=== PATIENT | female | born 1940 | race Caucasian/White ===

== ENCOUNTER 2017-12-20 09:41 | Inpatient (IN) | payer OTHER, MEDICAID ==
[~2017-12-20] VITALS: Ht 149.9 cm; Wt 65.8 kg
[2017-12-20 09:48] VITALS: BP_SYST 152
[2017-12-20] MEDS ORDERED: NACL 0.9% 1,000 ML IV ONE (09:54)
[2017-12-20 10:20] LABS: EOSINOPHILS # (AUTO) 0.1 K/uL (0.0-0.4); EOSINOPHILS % (AUTO) 1.6 % (0.0-4.0); HEMATOCRIT 36.9 % (36-48); HEMOGLOBIN 12.6 g/dL (12.0-16.0); LYMPHOCYTES # (AUTO) 0.5 K/uL (1.0-5.5); LYMPHOCYTES % (AUTO) 10.7 % (20.5-51.5); MEAN CORPUSCULAR HEMOGLOBIN 36 pg (27-31); MEAN CORPUSCULAR HGB CONC 34 % (32-36); MEAN CORPUSCULAR VOLUME 105 fL (79.0-98.0); MONOCYTES # (AUTO) 0.4 K/uL (0.0-1.0); MONOCYTES % (AUTO) 7.5 % (1.7-9.3); NEUTROPHILS # (AUTO) 3.8 K/uL (1.8-7.7); NEUTROPHILS % (AUTO) 79.2 % (40.0-70.0); PLATELET COUNT (AUTO) 125 K/uL (130-430); RED BLOOD CELL COUNT(AUTO) 3.51 MIL/uL (4.2-6.2); WHITE BLOOD COUNT (AUTO) 4.8 K/uL (4.8-10.8)
[2017-12-20 10:22] LABS: BILIRUBIN,URINE NEGATIVE (NEGATIVE); BLOOD, URINE 1+ (NEGATIVE); CLARITY/URINE HAZY (CLEAR); COLOR,URINE YELLOW (YELLOW); GLUCOSE,URINE NEGATIVE (NEGATIVE); KETONES,URINE NEGATIVE (NEGATIVE); LEUKOCYTE ESTERASE ,URINE NEGATIVE (NEGATIVE); NITRITE, URINE NEGATIVE (NEGATIVE); PH,URINE 6.5 (5.0-8.0); PROTEIN URINE NEGATIVE (NEGATIVE); UROBILINOGEN,URINE 0.2 (0.2-1.0)
[2017-12-20] MEDS ORDERED: FURO-149 PO (10:32)
[2017-12-20] MEDS ORDERED: SPIR50TA PO (10:32)
[2017-12-20] MEDS ORDERED: LOM2.5 PO (10:32)
[2017-12-20] MEDS ORDERED: LACT10SO7 PO (10:32)
[2017-12-20] MEDS ORDERED: CLOB50FO8 TP (10:32)
[2017-12-20] MEDS ORDERED: LORA-258 PO (10:32)
[2017-12-20] MEDS ORDERED: ONDA4TAB5 PO (10:32)
[2017-12-20] MEDS ORDERED: ESCI10TA PO (10:32)
[2017-12-20 11:08] LABS: ANION GAP 8 (5-15); CHLORIDE 109 mmol/L (98-107); CREATININE 1.35 mg/dL (0.55-1.30); GLUCOSE 94 mg/dL (70-99); SODIUM SERUM 141 mmol/L (136-145); UREA NITROGEN, BLOOD 25 mg/dL (8-21)
[2017-12-20 11:12] LABS: BACTERIA,URINE FEW /HPF (None Seen); MUCUS,URINE 1+ /LPF (None Seen); RBC,URINE 0-3 /HPF (0-3)
[2017-12-20 11:13] LABS: ALANINE AMINOTRANSFERASE 18 U/L (12-78); ALBUMIN 3.1 g/dL (3.4-4.8); ASPARTATE AMINOTRANSFERASE 24 U/L (10-37); TOTAL BILIRUBIN 2.2 mg/dL (0.0-1.0)
[2017-12-20] MEDS ORDERED: cefTRIAXone 1 GM in D5W 50 ML IV ONE (12:30)
[2017-12-20] MEDS ORDERED: cefTRIAXone 1 GM VIAL ONE (12:51)
[2017-12-20 13:31] VITALS: BP_SYST 146
[2017-12-20] MEDS ORDERED: AZITHROMYCIN 250 MG TABLET PO ONE (14:15)
[2017-12-20 15:33] VITALS: BP_SYST 145
[2017-12-20] MEDS ORDERED: ALBUTEROL SULFATE 0.083% 2.5 MG/3 ML VIAL.NEB INH PRN (19:45)
[2017-12-20] MEDS ORDERED: IPRATROPIUM BROM 0.5 MG/2.5 ML VIAL.NEB (ATROVENT) INH PRN (19:45)
[2017-12-20 21:05] VITALS: BP_SYST 111
[2017-12-21] MEDS: IPRATROPIUM BROM 0.5 MG/2.5 ML VIAL.NEB (ATROVENT) INH SCH ×3 (01:23→19:17)
[2017-12-21] MEDS: ALBUTEROL SULFATE 0.083% 2.5 MG/3 ML VIAL.NEB INH SCH ×3 (01:23→19:17)
[2017-12-21 01:57] VITALS: BP_SYST 125
[2017-12-21 06:10] LABS: BASOPHILS # (AUTO) 0.1 K/uL (0.0-0.2); BASOPHILS % (AUTO) 1.1 % (0.0-2.0); EOSINOPHILS # (AUTO) 0.2 K/uL (0.0-0.4); EOSINOPHILS % (AUTO) 3.2 % (0.0-4.0); HEMATOCRIT 28.9 % (36-48); HEMOGLOBIN 9.5 g/dL (12.0-16.0); LYMPHOCYTES # (AUTO) 0.9 K/uL (1.0-5.5); LYMPHOCYTES % (AUTO) 18.9 % (20.5-51.5); MEAN CORPUSCULAR HEMOGLOBIN 35 pg (27-31); MEAN CORPUSCULAR HGB CONC 33 % (32-36); MEAN CORPUSCULAR VOLUME 105 fL (79.0-98.0); MONOCYTES # (AUTO) 0.6 K/uL (0.0-1.0); MONOCYTES % (AUTO) 11.7 % (1.7-9.3); NEUTROPHILS % (AUTO) 65.1 % (40.0-70.0); PLATELET COUNT (AUTO) 106 K/uL (130-430); RED BLOOD CELL COUNT(AUTO) 2.75 MIL/uL (4.2-6.2); RED CELL DISTRIBUTION WIDTH 15.3 % (9.0-15.0); WHITE BLOOD COUNT (AUTO) 4.8 K/uL (4.8-10.8)
[2017-12-21 06:27] LABS: ANION GAP 8 (5-15); CHLORIDE 110 mmol/L (98-107); CREATININE 1.34 mg/dL (0.55-1.30); GLUCOSE 79 mg/dL (70-99); POTASSIUM 3.8 mmol/L (3.5-5.1); SODIUM SERUM 143 mmol/L (136-145); UREA NITROGEN, BLOOD 29 mg/dL (8-21)
[2017-12-21 06:36] LABS: ALANINE AMINOTRANSFERASE 13 U/L (12-78); ALBUMIN 2.4 g/dL (3.4-4.8); ASPARTATE AMINOTRANSFERASE 21 U/L (10-37); TOTAL BILIRUBIN 1.4 mg/dL (0.0-1.0)
[2017-12-21 07:45] VITALS: BP_SYST 162
[2017-12-21] MEDS: FUROSEMIDE 40 MG TABLET PO SCH (08:40)
[2017-12-21] MEDS ORDERED: cefTRIAXone 1 GM in D5W 50 ML IV SCH (09:00)
[2017-12-21] MEDS ORDERED: AZITHROMYCIN 250 MG TABLET PO SCH (09:00)
[2017-12-21] MEDS ORDERED: ACETAMINOPHEN 325 MG TABLET PO PRN (11:00)
[2017-12-21] MEDS ORDERED: ONDANSETRON HCL 4 MG/2 ML VIAL IVP PRN (11:00)
[2017-12-21 11:36] VITALS: BP_SYST 131
[2017-12-21 15:26] VITALS: BP_SYST 135
[2017-12-21] MEDS: LACTULOSE 20 GM/30 ML UDC PO SCH (20:40)
[2017-12-21] MEDS: FAMOTIDINE 20 MG TABLET PO SCH (20:40)
[2017-12-21 20:45] VITALS: BP_SYST 115
[2017-12-21 23:30] VITALS: BP_SYST 141
[2017-12-22] MEDS: ALBUTEROL SULFATE 0.083% 2.5 MG/3 ML VIAL.NEB INH SCH ×3 (00:35→13:56)
[2017-12-22] MEDS: IPRATROPIUM BROM 0.5 MG/2.5 ML VIAL.NEB (ATROVENT) INH SCH ×3 (00:35→13:56)
[2017-12-22 06:53] LABS: BASOPHILS % (AUTO) 0.9 % (0.0-2.0); EOSINOPHILS # (AUTO) 0.1 K/uL (0.0-0.4); EOSINOPHILS % (AUTO) 3.6 % (0.0-4.0); HEMATOCRIT 28.7 % (36-48); HEMOGLOBIN 10.1 g/dL (12.0-16.0); LYMPHOCYTES # (AUTO) 0.5 K/uL (1.0-5.5); LYMPHOCYTES % (AUTO) 13.4 % (20.5-51.5); MEAN CORPUSCULAR HEMOGLOBIN 36 pg (27-31); MEAN CORPUSCULAR HGB CONC 35 % (32-36); MEAN CORPUSCULAR VOLUME 102 fL (79.0-98.0); MONOCYTES # (AUTO) 0.5 K/uL (0.0-1.0); NEUTROPHILS # (AUTO) 2.7 K/uL (1.8-7.7); NEUTROPHILS % (AUTO) 70.1 % (40.0-70.0); PLATELET COUNT (AUTO) 96 K/uL (130-430); RED BLOOD CELL COUNT(AUTO) 2.81 MIL/uL (4.2-6.2); RED CELL DISTRIBUTION WIDTH 14.9 % (9.0-15.0); WHITE BLOOD COUNT (AUTO) 3.8 K/uL (4.8-10.8)
[2017-12-22 06:55] LABS: ALANINE AMINOTRANSFERASE 13 U/L (12-78); ALBUMIN 2.4 g/dL (3.4-4.8); ANION GAP 3 (5-15); ASPARTATE AMINOTRANSFERASE 19 U/L (10-37); CALCIUM 9.4 mg/dL (8.4-11.0); CHLORIDE 110 mmol/L (98-107); CREATININE 1.17 mg/dL (0.55-1.30); GLUCOSE 85 mg/dL (70-99); POTASSIUM 4.1 mmol/L (3.5-5.1); SODIUM SERUM 139 mmol/L (136-145); TOTAL BILIRUBIN 1.1 mg/dL (0.0-1.0); UREA NITROGEN, BLOOD 28 mg/dL (8-21)
[2017-12-22 08:35] VITALS: BP_SYST 146
[2017-12-22] MEDS ORDERED: AZITHROMYCIN 250 MG TABLET PO SCH (09:00)
[2017-12-22] MEDS ORDERED: SPIRONOLACTONE 25 MG TABLET (ALDACTONE) PO SCH (09:00)
[2017-12-22] MEDS: FUROSEMIDE 40 MG TABLET PO SCH (09:33)
[2017-12-22] MEDS: LACTULOSE 20 GM/30 ML UDC PO SCH (09:34)
[2017-12-22] MEDS: FAMOTIDINE 20 MG TABLET PO SCH (09:34)
[2017-12-22] MEDS ORDERED: FURO-150 PO (10:18)
[2017-12-22] MEDS ORDERED: AZIT500T2 PO (10:19)
[2017-12-22] MEDS ORDERED: ALBMDI INH (10:20)
[2017-12-22 12:40] VITALS: BP_SYST 137
[2017-12-22 12:53] VITALS: BP_SYST 137
[2017-12-22 16:33] VITALS: BP_SYST 146
== END 2017-12-22 17:00 | disposition home or self-care (01) | DRG 193 ==
LOC: SED 09:41 → SMU 13:03
PROVIDERS: ADMIT Internal Medicine Hospice and Palliative Medicine; ATTEND Internal Medicine Hospice and Palliative Medicine
DX: J18.9 Pneumonia, unspecified organism (principal); E43 Unspecified severe protein-calorie malnutrition; I13.0 Hypertensive heart and chronic kidney disease with heart failure and stage 1 through stage 4 chronic kidney disease, or unspecified chronic kidney disease; F03.90 Unspecified dementia, unspecified severity, without behavioral disturbance, psychotic disturbance, mood disturbance, and anxiety; I50.9 Heart failure, unspecified; K74.60 Unspecified cirrhosis of liver; N18.9 Chronic kidney disease, unspecified; Z90.49 Acquired absence of other specified parts of digestive tract; Z79.899 Other long term (current) drug therapy
CPT/HCPCS: 36415; 71045; 71250-TC; 80053; 81000-TC; 82140-TC; 83605; 83880; 84484; 85025; 87040-TC; 94640; 96361; 96365; 99285; J0696; J7030; J7060; J7613; Q0144

== ENCOUNTER 2018-07-05 06:39 | Inpatient (IN) | payer OTHER, MEDICAID ==
[2018-07-05] VITALS (7 sets, daily range): BP systolic 118–157
[~2018-07-05] VITALS: Ht 149.9 cm; Wt 68.6 kg
[~2018-07-05 06:39] MED LIST: ALBMDI INH; AZIT500T2 PO; CLOB50FO8 TP; ESCI10TA PO; FURO-150 PO; LACT10SO7 PO; LOM2.5 PO; LORA-258 PO; ONDA4TAB5 PO
[2018-07-05] MEDS ORDERED: NACL 0.9% 1,000 ML IV ONE (07:00)
[2018-07-05] MEDS ORDERED: IPRATROPIUM/ALBUTEROL SULFATE 3 ML AMPUL.NEB (DUONEB) INH ONE ×2 (07:30→10:00)
[2018-07-05] MEDS ORDERED: FUROSEMIDE 40 MG/4 ML VIAL IVP ONE (08:15)
[2018-07-05 08:58] LABS: ANION GAP 9 (5-15); CHLORIDE 108 mmol/L (98-107); GLUCOSE 90 mg/dL (70-99); POTASSIUM 3.1 mmol/L (3.5-5.1); SODIUM SERUM 144 mmol/L (136-145)
[2018-07-05 08:59] LABS: CALCIUM 9.2 mg/dL (8.4-11.0); CREATININE 1.01 mg/dL (0.55-1.30); UREA NITROGEN, BLOOD 24 mg/dL (8-21)
[2018-07-05 09:00] LABS: HEMATOCRIT 30.7 % (36-48); HEMOGLOBIN 10.8 g/dL (12.0-16.0); INR 1.3 (0.8-1.2); PROTHROMBIN TIME 13.1 SECS (9.5-12.5); RED BLOOD CELL COUNT(AUTO) 3.05 MIL/uL (4.2-6.2); WHITE BLOOD COUNT (AUTO) 5.5 K/uL (4.8-10.8)
[2018-07-05 09:01] LABS: BASOPHILS # (AUTO) 0.1 K/uL (0.0-0.2); BASOPHILS % (AUTO) 1.3 % (0.0-2.0); EOSINOPHILS # (AUTO) 0.2 K/uL (0.0-0.4); EOSINOPHILS % (AUTO) 3.1 % (0.0-4.0); LYMPHOCYTES # (AUTO) 0.5 K/uL (1.0-5.5); LYMPHOCYTES % (AUTO) 9.1 % (20.5-51.5); MEAN CORPUSCULAR HEMOGLOBIN 35 pg (27-31); MEAN CORPUSCULAR HGB CONC 35 % (32-36); MEAN CORPUSCULAR VOLUME 101 fL (79.0-98.0); MONOCYTES # (AUTO) 0.7 K/uL (0.0-1.0); NEUTROPHILS # (AUTO) 4.1 K/uL (1.8-7.7); NEUTROPHILS % (AUTO) 74.5 % (40.0-70.0); PLATELET COUNT (AUTO) 150 K/uL (130-430); RED CELL DISTRIBUTION WIDTH 16.3 % (9.0-15.0)
[2018-07-05 09:07] LABS: ALANINE AMINOTRANSFERASE 14 U/L (12-78); ALBUMIN 2.4 g/dL (3.4-4.8); ASPARTATE AMINOTRANSFERASE 31 U/L (10-37)
[2018-07-05] MEDS ORDERED: POTASSIUM CHLORIDE 20 MEQ TAB.PRT.SR PO ONE ×2 (09:30→11:00)
[2018-07-05] MEDS ORDERED: ASPIRIN 81 MG TAB.CHEW PO ONE (09:30)
[2018-07-05] MEDS ORDERED: ACETAMINOPHEN 325 MG TABLET PO PRN (09:45)
[2018-07-05] MEDS ORDERED: ONDANSETRON HCL 4 MG/2 ML VIAL IVP PRN (10:00)
[2018-07-05 10:05] LABS: BILIRUBIN,URINE NEGATIVE (NEGATIVE); BLOOD, URINE 2+ (NEGATIVE); CLARITY/URINE CLEAR (CLEAR); COLOR,URINE YELLOW (YELLOW); GLUCOSE,URINE NEGATIVE (NEGATIVE); KETONES,URINE NEGATIVE (NEGATIVE); LEUKOCYTE ESTERASE ,URINE NEGATIVE (NEGATIVE); NITRITE, URINE NEGATIVE (NEGATIVE); PROTEIN URINE 2+ (NEGATIVE); UROBILINOGEN,URINE 0.2 (0.2-1.0)
[2018-07-05] MEDS ORDERED: FUROSEMIDE 20 MG/2 ML VIAL IVP ONE (11:00)
[2018-07-05 11:09] LABS: BACTERIA,URINE RARE /HPF (None Seen); WBC,URINE 0-3 /HPF (0-3)
[2018-07-05 11:12] LABS: URINE AMORPHOUS URATE 1+ /HPF (None Seen)
[2018-07-05] MEDS ORDERED: AZITHROMYCIN 500 MG in NS 250 ML IV SCH (11:30)
[2018-07-05] MEDS: cefTRIAXone 1 GM in D5W 50 ML IV SCH (11:56)
[2018-07-05] MEDS: NORMAL SALINE 5 ML DISP.SYRIN IVF SCH ×2 (17:35→22:14)
[2018-07-05] MEDS ORDERED: DIPHENOXYLATE HCL/ATROP SULF 2.5 MG TAB PO PRN (19:15)
[2018-07-05] MEDS ORDERED: FUROSEMIDE 20 MG/2 ML VIAL IVP SCH (21:00)
[2018-07-05] MEDS ORDERED: POTASSIUM CHLORIDE 20 MEQ TAB.PRT.SR ONE (22:15)
[2018-07-06] VITALS (7 sets, daily range): BP systolic 127–164
[2018-07-06] MEDS: ENALAPRILAT DIHYDRATE 1.25 MG/ML VIAL IVP PRN (04:45)
[2018-07-06] MEDS: NORMAL SALINE 5 ML DISP.SYRIN IVF SCH ×3 (06:42→21:05)
[2018-07-06] MEDS: cefTRIAXone 1 GM in D5W 50 ML IV SCH (09:17)
[2018-07-06] MEDS: ASPIRIN 81 MG TAB.CHEW PO SCH (09:18)
[2018-07-06] MEDS: CITALOPRAM HYDROBROMIDE 20 MG TABLET PO SCH (09:18)
[2018-07-06] MEDS: POTASSIUM CHLORIDE 10 MEQ TAB.PRT.SR PO SCH (09:18)
[2018-07-06] MEDS: FUROSEMIDE 40 MG/4 ML VIAL IVP SCH (09:19)
[2018-07-06] MEDS: AZITHROMYCIN 250 MG in NS 250 ML IV SCH (09:55)
[2018-07-06] MEDS ORDERED: ENOXAPARIN SODIUM 30 MG/0.3 ML SYRINGE SUBCUT ONE (13:00)
[2018-07-06] MEDS: LACTULOSE 20 GM/30 ML UDC PO SCH (21:05)
[2018-07-07] MEDS: NORMAL SALINE 5 ML DISP.SYRIN IVF SCH ×3 (05:40→21:57)
[2018-07-07 07:24] LABS: ANION GAP 7 (5-15); CALCIUM 8.8 mg/dL (8.4-11.0); CHLORIDE 109 mmol/L (98-107); CREATININE 1.06 mg/dL (0.55-1.30); GLUCOSE 80 mg/dL (70-99); POTASSIUM 3.6 mmol/L (3.5-5.1); SODIUM SERUM 144 mmol/L (136-145); UREA NITROGEN, BLOOD 25 mg/dL (8-21)
[2018-07-07 07:34] LABS: ALANINE AMINOTRANSFERASE 13 U/L (12-78); ALBUMIN 2.2 g/dL (3.4-4.8); ASPARTATE AMINOTRANSFERASE 24 U/L (10-37); TOTAL BILIRUBIN 1.5 mg/dL (0.0-1.0)
[2018-07-07 08:04] VITALS: BP_SYST 147
[2018-07-07 08:07] LABS: BASOPHILS # (AUTO) 0.1 K/uL (0.0-0.2); BASOPHILS % (AUTO) 1.1 % (0.0-2.0); EOSINOPHILS # (AUTO) 0.2 K/uL (0.0-0.4); EOSINOPHILS % (AUTO) 3.2 % (0.0-4.0); HEMATOCRIT 26.9 % (36-48); HEMOGLOBIN 9.3 g/dL (12.0-16.0); LYMPHOCYTES # (AUTO) 0.7 K/uL (1.0-5.5); LYMPHOCYTES % (AUTO) 10.8 % (20.5-51.5); MEAN CORPUSCULAR HEMOGLOBIN 35 pg (27-31); MEAN CORPUSCULAR HGB CONC 35 % (32-36); MEAN CORPUSCULAR VOLUME 102 fL (79.0-98.0); MONOCYTES # (AUTO) 0.7 K/uL (0.0-1.0); MONOCYTES % (AUTO) 11.7 % (1.7-9.3); NEUTROPHILS # (AUTO) 4.5 K/uL (1.8-7.7); NEUTROPHILS % (AUTO) 73.2 % (40.0-70.0); PLATELET COUNT (AUTO) 131 K/uL (130-430); RED BLOOD CELL COUNT(AUTO) 2.64 MIL/uL (4.2-6.2); RED CELL DISTRIBUTION WIDTH 15.9 % (9.0-15.0); WHITE BLOOD COUNT (AUTO) 6.1 K/uL (4.8-10.8)
[2018-07-07] MEDS: LACTULOSE 20 GM/30 ML UDC PO SCH ×2 (09:06→21:56)
[2018-07-07] MEDS: cefTRIAXone 1 GM in D5W 50 ML IV SCH (09:06)
[2018-07-07] MEDS: FUROSEMIDE 40 MG/4 ML VIAL IVP SCH (09:06)
[2018-07-07] MEDS: POTASSIUM CHLORIDE 10 MEQ TAB.PRT.SR PO SCH (09:07)
[2018-07-07] MEDS: ASPIRIN 81 MG TAB.CHEW PO SCH (09:07)
[2018-07-07] MEDS: CITALOPRAM HYDROBROMIDE 20 MG TABLET PO SCH (09:07)
[2018-07-07] MEDS: SPIRONOLACTONE 25 MG TABLET (ALDACTONE) PO SCH (09:07)
[2018-07-07] MEDS: ENOXAPARIN SODIUM 30 MG/0.3 ML SYRINGE SUBCUT SCH (09:09)
[2018-07-07] MEDS: AZITHROMYCIN 250 MG in NS 250 ML IV SCH (09:49)
[2018-07-07 11:12] VITALS: BP_SYST 135
[2018-07-07 15:23] VITALS: BP_SYST 135
[2018-07-07] MEDS: ALBUTEROL SULFATE 0.083% 2.5 MG/3 ML VIAL.NEB INH PRN (19:37)
[2018-07-07 20:15] VITALS: BP_SYST 150
[2018-07-07] MEDS: ENALAPRILAT DIHYDRATE 1.25 MG/ML VIAL IVP PRN (21:59)
[2018-07-07] MEDS ORDERED: hydrALAZINE HCL 25 MG TABLET PO PRN (23:30)
[2018-07-08] VITALS (7 sets, daily range): BP systolic 137–172
[2018-07-08] MEDS ORDERED: ENALAPRILAT DIHYDRATE 1.25 MG/ML VIAL IVP SCH
[2018-07-08] MEDS: LORazepam 1 MG TABLET PO PRN (00:09)
[2018-07-08] MEDS: ALBUTEROL SULFATE 0.083% 2.5 MG/3 ML VIAL.NEB INH PRN (00:48)
[2018-07-08] MEDS: NORMAL SALINE 5 ML DISP.SYRIN IVF SCH ×3 (05:11→21:22)
[2018-07-08] MEDS: cefTRIAXone 1 GM in D5W 50 ML IV SCH (08:59)
[2018-07-08] MEDS: POTASSIUM CHLORIDE 10 MEQ TAB.PRT.SR PO SCH (09:00)
[2018-07-08] MEDS: FUROSEMIDE 40 MG/4 ML VIAL IVP SCH (09:00)
[2018-07-08] MEDS: LACTULOSE 20 GM/30 ML UDC PO SCH ×2 (09:00→21:22)
[2018-07-08] MEDS: CITALOPRAM HYDROBROMIDE 20 MG TABLET PO SCH (09:01)
[2018-07-08] MEDS: SPIRONOLACTONE 25 MG TABLET (ALDACTONE) PO SCH (09:01)
[2018-07-08] MEDS: ASPIRIN 81 MG TAB.CHEW PO SCH (09:01)
[2018-07-08] MEDS: ENOXAPARIN SODIUM 30 MG/0.3 ML SYRINGE SUBCUT SCH (09:04)
[2018-07-08] MEDS: AZITHROMYCIN 250 MG in NS 250 ML IV SCH (09:21)
[2018-07-08] MEDS: ENALAPRILAT DIHYDRATE 1.25 MG/ML VIAL IVP PRN (09:22)
[2018-07-09 00:22] VITALS: BP_SYST 153
[2018-07-09] MEDS: NORMAL SALINE 5 ML DISP.SYRIN IVF SCH ×2 (05:46→14:00)
[2018-07-09 08:07] VITALS: BP_SYST 183
[2018-07-09] MEDS: AZITHROMYCIN 250 MG in NS 250 ML IV SCH (08:27)
[2018-07-09] MEDS: cefTRIAXone 1 GM in D5W 50 ML IV SCH (08:27)
[2018-07-09] MEDS: SPIRONOLACTONE 25 MG TABLET (ALDACTONE) PO SCH (08:28)
[2018-07-09] MEDS: ASPIRIN 81 MG TAB.CHEW PO SCH (08:28)
[2018-07-09] MEDS: POTASSIUM CHLORIDE 10 MEQ TAB.PRT.SR PO SCH (08:28)
[2018-07-09] MEDS: ENALAPRILAT DIHYDRATE 1.25 MG/ML VIAL IVP PRN (08:29)
[2018-07-09] MEDS: LACTULOSE 20 GM/30 ML UDC PO SCH (08:29)
[2018-07-09] MEDS: CITALOPRAM HYDROBROMIDE 20 MG TABLET PO SCH (08:30)
[2018-07-09] MEDS: FUROSEMIDE 40 MG/4 ML VIAL IVP SCH (08:30)
[2018-07-09] MEDS: ENOXAPARIN SODIUM 30 MG/0.3 ML SYRINGE SUBCUT SCH (08:32)
[2018-07-09 11:34] VITALS: BP_SYST 147
[2018-07-09 15:31] VITALS: BP_SYST 140
[2018-07-09] MEDS: LORazepam 1 MG TABLET PO PRN (17:55)
[2018-07-09] MEDS: ALBUTEROL SULFATE 0.083% 2.5 MG/3 ML VIAL.NEB INH PRN (19:11)
== END 2018-07-09 19:32 | disposition hospice, home (50) | DRG 441 ==
LOC: SED 06:39 → STU 09:39
PROVIDERS: ADMIT Internal Medicine; ATTEND Internal Medicine
DX: K72.90 Hepatic failure, unspecified without coma (principal); J18.9 Pneumonia, unspecified organism; I50.33 Acute on chronic diastolic (congestive) heart failure; J91.8 Pleural effusion in other conditions classified elsewhere; I11.0 Hypertensive heart disease with heart failure; K74.69 Other cirrhosis of liver; D64.9 Anemia, unspecified; J44.9 Chronic obstructive pulmonary disease, unspecified; F32.9 Major depressive disorder, single episode, unspecified; F03.90 Unspecified dementia, unspecified severity, without behavioral disturbance, psychotic disturbance, mood disturbance, and anxiety; L53.9 Erythematous condition, unspecified; S81.802A Unspecified open wound, left lower leg, initial encounter; X58.XXXA Exposure to other specified factors, initial encounter; Y93.89 Activity, other specified; Y92.89 Other specified places as the place of occurrence of the external cause; Z79.899 Other long term (current) drug therapy; Y99.8 Other external cause status
CPT/HCPCS: 36415; 36600; 71045; 71250-TC; 80053; 81000-TC; 82803-TC; 83605; 83880; 84484; 85025; 85610-TC; 85730-TC; 87040-TC; 87086; 93005; 93306; 94640; 94760; 96374; 97110-GP; 97116-GP; 97530-GP; 99285; G0378; J0456; J0696; J1650; J1940; J7050; J7060; J7613; J7620

== ENCOUNTER 2018-07-23 16:35 | Emergency (ER) | payer OTHER, MEDICAID ==
[~2018-07-23] VITALS: Ht 149.9 cm; Wt 72.6 kg
[2018-07-23 16:35] VITALS: BP_SYST 165
--- NOTE | 2018-07-23 16:35 | NUR ---
Patient to ER bed for evaluation. Side rails up. Report given to DELICIA.
--- NOTE | 2018-07-23 16:40 | NUR ---
Patient to ER via EMT ambulance for evaluation of skin tear to her right forearm s/p non-syncopal mechanical fall. NO LOC reported, no neck or back pain, patient able to move all extremities without difficulty. Patient had a similar fall earlier today and was taken to [facility] and was given farheen to her head and sent back to [facility]. Per EMT's patient is supposed to be using a walker, but has not been using one. Patient is awake, alert and oriented in no acute distress, vital signs stable, respirations even and unlabored, skin warm and dry to touch. Patient placed in ER bed 3 to await MD evaluation, will continue to observe and assess.
--- NOTE | 2018-07-23 16:44 | NUR ---
ER Dr. DE GUZMAN at bedside examining patient.
[2018-07-23] MEDS ORDERED: LOM2.5 PO (16:55)
[2018-07-23] MEDS ORDERED: ALBU2.5V7 INH (16:55)
[2018-07-23] MEDS ORDERED: LACT10SO6 PO (16:55)
[2018-07-23] MEDS ORDERED: FURO-149 PO (16:55)
[2018-07-23] MEDS ORDERED: LORA-258 PO (16:55)
[2018-07-23] MEDS ORDERED: CEL20 PO (16:55)
[2018-07-23] MEDS ORDERED: SPIR25TA6 PO (16:55)
[2018-07-23] MEDS ORDERED: ACET-2165 PO (16:55)
[2018-07-23] MEDS ORDERED: ASPI-1155 PO (16:55)
[2018-07-23] MEDS ORDERED: ONDA4TAB5 PO (16:55)
[2018-07-23] MEDS ORDERED: MELA3TAB PO (16:55)
[2018-07-23] MEDS ORDERED: HYDR-4038 PO (16:55)
--- NOTE | 2018-07-23 16:55 | NUR ---
Medication reconciliation completed with information provided by BLAS DOMINGO. Any prior medication reconciliation on file was reviewed and corrected.
--- NOTE | 2018-07-23 17:44 | NUR ---
CALLED AND GAVE REPORT TO YOUSUF AT [facility]. SHE IS AWARE THAT DID NOT WANT TO ORDER CT SINCE SHE DID NOT HIT HEAD ON FALL TODAY.
--- NOTE | 2018-07-23 17:55 | NUR ---
PATIENT GETTING WOUND CARE AT BEDSIDE BY EMT.
--- NOTE | 2018-07-23 18:29 | NUR ---
Patient given written and verbal discharge instructions and verbalizes understanding. ER MD discussed with patient the results and treatment provided. Patient in stable condition. ID arm band removed. No Rx given. Patient educated on pain management and to follow up with PMD. Pain Scale 0/10. Opportunity for questions provided and answered. Medication side effect fact sheet provided. Patient refuses to sign DC paperwork.
--- NOTE | 2018-07-23 18:31 | NUR ---
PATIENT LEAVING WITH EMT'S IN STABLE CONDITION. GAVE THEM PATIENT'S DISCHARGE PAPERWORK. ALL BELONGINGS SENT WITH PATIENT.
[2018-07-23 18:33] VITALS: BP_SYST 165
== END 2018-07-23 18:33 | disposition home or self-care (01) ==
LOC: SED 16:35
DX: S51.811A Laceration without foreign body of right forearm, initial encounter (principal); R03.0 Elevated blood-pressure reading, without diagnosis of hypertension; J44.9 Chronic obstructive pulmonary disease, unspecified; F03.90 Unspecified dementia, unspecified severity, without behavioral disturbance, psychotic disturbance, mood disturbance, and anxiety; Z79.82 Long term (current) use of aspirin; Z79.899 Other long term (current) drug therapy; Z87.442 Personal history of urinary calculi; W01.0XXA Fall on same level from slipping, tripping and stumbling without subsequent striking against object, initial encounter; Y93.89 Activity, other specified; Y92.89 Other specified places as the place of occurrence of the external cause; Y99.8 Other external cause status
CPT/HCPCS: 99283